=== PATIENT | male | born 1945 | race Caucasian/White ===

== ENCOUNTER → 2016-07-31 | Outpatient (CLI) | payer OTHER ==
[~2016-07-31] MED LIST: ASPIRIN FOR CHI81 MG PO; B121000 MCG/1 IM; HYZAAR 12.5 MG-1 TA1; LOPID600 MG PO; MECLIZINE HCL25 M1 PO
== END | disposition home or self-care (01) ==
LOC: RAD 15:22
DX: M17.12 Unilateral primary osteoarthritis, left knee (principal); M21.162 Varus deformity, not elsewhere classified, left knee; M76.9 Unspecified enthesopathy, lower limb, excluding foot; M25.762 Osteophyte, left knee

== ENCOUNTER → 2016-12-18 | Outpatient (CLI) | payer OTHER | END | disposition home or self-care (01) | LOC: ORTHO 03:20 | DX: M17.12 Unilateral primary osteoarthritis, left knee (principal); M25.762 Osteophyte, left knee ==

== ENCOUNTER → 2018-11-25 | Outpatient (CLI) | payer OTHER ==
[~2018-11-25] MED LIST changes: +VITAMIN B1250 MCG PO; +ZOCOR20 MG PO
[2018-11-25 17:24] LABS: BASO # 0.1 10*3/uL (0.0-0.1); BASO % 0.7 % (0.0-1.0); EOS # 0.1 10*3/uL (0.0-0.4); EOS % 0.9 % (1.0-4.0); HEMATOCRIT 48.8 % (42.0-52.0); HEMOGLOBIN 16.6 g/dl (14.0-18.0); LYMPH # 2.2 10*3/uL (1.3-4.4); LYMPH % 25.5 % (27.0-41.0); MEAN PLATELET VOLUME 12.1 fl (9.6-12.3); MONO # 0.5 10*3/uL (0.1-1.0); MONO % 6.2 % (3.0-9.0); NEUT # 5.8 10*3/uL (2.3-7.9); NEUT % 66.5 % (47.0-73.0); PLATELET COUNT AUTOMATED 187 10*3/uL (130-400); RED BLOOD COUNT 5.36 10*6/uL (4.50-5.90); RED CELL DISTRI WIDTH 12.6 % (0-14.5); WHITE BLOOD COUNT 8.8 10*3/uL (4.8-10.8)
[2018-11-25 17:57] LABS: BUN 17 mg/dl (7-24); CHLORIDE 95 mmol/L (98-107); POTASSIUM 4.2 mmol/L (3.5-5.1); SODIUM 131 mmol/L (136-145)
== END | disposition home or self-care (01) ==
LOC: LAB 16:50
PROVIDERS: Internal Medicine
DX: M79.622 Pain in left upper arm (principal); I10 Essential (primary) hypertension

== ENCOUNTER 2019-01-18 16:45 | Emergency (ER) | payer OTHER ==
[~2019-01-18] VITALS: Ht 175.2 cm; Wt 104.3 kg
[2019-01-18 16:49] VITALS: BP 174/92
[2019-01-18] MEDS ORDERED: ANTIBIOTIC28.4 GM T (21:17)
[2019-01-18] MEDS ORDERED: CEPHALEXIN500 M1 PO (21:17)
== END 2019-01-18 20:29 | disposition left against medical advice (07) ==
LOC: ED 16:45
DX: S02.2XXA Fracture of nasal bones, initial encounter for closed fracture (principal); S01.412A Laceration without foreign body of left cheek and temporomandibular area, initial encounter; I10 Essential (primary) hypertension; E78.5 Hyperlipidemia, unspecified; Z23 Encounter for immunization; Z88.5 Allergy status to narcotic agent; Z79.82 Long term (current) use of aspirin; Z79.899 Other long term (current) drug therapy; Z86.711 Personal history of pulmonary embolism; W18.30XA Fall on same level, unspecified, initial encounter; Y93.01 Activity, walking, marching and hiking; Y92.89 Other specified places as the place of occurrence of the external cause; Y99.8 Other external cause status

== ENCOUNTER → 2019-02-23 | Outpatient (CLI) | payer MEDICARE ==
[~2019-02-23] MED LIST changes: +ANTIBIOTIC28.4 GM T; +CEPHALEXIN500 M1 PO
== END | disposition home or self-care (01) ==
LOC: RESCLI 01:24
DX: Z76.89 Persons encountering health services in other specified circumstances (principal); E78.5 Hyperlipidemia, unspecified; I10 Essential (primary) hypertension; E55.9 Vitamin D deficiency, unspecified; E66.9 Obesity, unspecified; Z79.899 Other long term (current) drug therapy

== ENCOUNTER → 2019-03-30 | Outpatient (CLI) | payer MEDICARE | END | disposition home or self-care (01) | LOC: RESCLI 00:38 | DX: I10 Essential (primary) hypertension (principal); E78.5 Hyperlipidemia, unspecified; E55.9 Vitamin D deficiency, unspecified; E11.9 Type 2 diabetes mellitus without complications; Z79.82 Long term (current) use of aspirin; Z79.84 Long term (current) use of oral hypoglycemic drugs; Z79.899 Other long term (current) drug therapy ==

== ENCOUNTER 2020-07-04 12:41 | Emergency (ER) | payer OTHER ==
[~2020-07-04] VITALS: Wt 124.7 kg
[2020-07-04 13:18] LABS: BASO % 0.4 % (0.0-1.0); EOS % 0.2 % (1.0-4.0); HEMATOCRIT 47.7 % (42.0-52.0); LYMPH # 1.1 10*3/uL (1.3-4.4); LYMPH % 13.6 % (27.0-41.0); MEAN CORPUSCULAR HGB 29.6 pg (27.0-31.0); MEAN CORPUSCULAR HGB CONC 32.5 g/dl (33.0-37.0); MEAN PLATELET VOLUME 10.6 fl (9.6-12.3); MONO # 0.3 10*3/uL (0.1-1.0); MONO % 3.2 % (3.0-9.0); NEUT # 6.7 10*3/uL (2.3-7.9); NEUT % 82.1 % (47.0-73.0); PLATELET COUNT AUTOMATED 171 10*3/uL (130-400); RED BLOOD COUNT 5.24 10*6/uL (4.50-5.90); RED CELL DISTRI WIDTH 13.7 % (0-14.5); WHITE BLOOD COUNT 8.2 10*3/uL (4.8-10.8)
[2020-07-04 13:33] LABS: ALBUMIN 3.4 gm/dl (3.1-4.5); ALKALINE PHOSPHATASE 57 U/L (45-117); BUN 20 mg/dl (7-24); CHLORIDE 104 mmol/L (98-107); LIPASE 61 U/L (73-393); POTASSIUM 3.9 mmol/L (3.5-5.1); SGOT/AST 36 IU/L (3-35); SGPT/ALT 44 U/L (12-78); SODIUM 138 mmol/L (136-145); TOTAL PROTEIN 7.6 gm/dL (6.4-8.2)
[2020-07-04 13:34] LABS: TROPONIN I < 0.015 ng/ml (<0.045)
[2020-07-04 14:32] VITALS: BP 129/61
[2020-07-04] MEDS ORDERED: ZOFRAN4 MG PO (16:18)
[2020-07-04] MEDS ORDERED: MECLIZINE HCL25 M2 PO (16:18)
== END 2020-07-04 17:26 | disposition home or self-care (01) ==
LOC: ED 12:41
PROVIDERS: Emergency Medicine
DX: R42 Dizziness and giddiness (principal); Z88.5 Allergy status to narcotic agent; Z79.899 Other long term (current) drug therapy; Z79.82 Long term (current) use of aspirin

== ENCOUNTER 2023-06-05 10:51 | Inpatient (IN) | payer OTHER ==
[~2023-06-05] VITALS: Ht 172.7 cm; Wt 108.0 kg
[~2023-06-05 10:51] MED LIST changes: +MECLIZINE HCL25 M2 PO; +ZOFRAN4 MG PO
[2023-06-05 11:02] VITALS: BP 137/91
[2023-06-05] MEDS ORDERED: SODIUM CHLORIDE 0.9% 1,000 ML IV ONE (11:15)
[2023-06-05] MEDS ORDERED: IOHEXOL 300 MG/ML 100 ML VIAL IV ONE (11:30)
[2023-06-05 11:48] LABS: BASO % 0.2 % (0.0-1.0); EOS % 0.4 % (1.0-4.0); HEMATOCRIT 53.2 % (42.0-52.0); LYMPH % 11.1 % (27.0-41.0); MEAN CELL VOLUME 90.9 fl (80.0-94.0); MEAN CORPUSCULAR HGB 29.7 pg (27.0-31.0); MEAN CORPUSCULAR HGB CONC 32.7 g/dl (33.0-37.0); MEAN PLATELET VOLUME 10.8 fl (9.6-12.3); MONO # 0.6 10*3/uL (0.1-1.0); MONO % 6.8 % (3.0-9.0); NEUT # 7.6 10*3/uL (2.3-7.9); NEUT % 81.2 % (47.0-73.0); PLATELET COUNT AUTOMATED 169 10*3/uL (130-400); RED BLOOD COUNT 5.85 10*6/uL (4.50-5.90); WHITE BLOOD COUNT 9.3 10*3/uL (4.8-10.8)
[2023-06-05 12:10] LABS: ALKALINE PHOSPHATASE 51 U/L (46-116); BUN 19 mg/dl (9-23); CHLORIDE 101 mmol/L (98-107); LIPASE 30 U/L (12-53); POTASSIUM 3.7 mmol/L (3.4-5.1); SGPT/ALT 16 U/L (5-49); TOTAL PROTEIN 6.6 gm/dL (6.0-8.0)
[2023-06-05 13:30] VITALS: BP 127/74
[2023-06-05] MEDS ORDERED: Ondansetron Hydrochloride 4 MG/2 ML VIAL IV ONE (13:30)
[2023-06-05] MEDS ORDERED: MORPHINE Sulfate 2 MG/ML SYR IV ONE (13:30)
[2023-06-05 14:17] VITALS: BP 125/68
[2023-06-05 15:14] VITALS: BP 117/51
[2023-06-05] MEDS ORDERED: ATORVASTATIN CA40 M1 PO (15:42)
[2023-06-05] MEDS ORDERED: VALSARTAN-HCTZ1 EAC2 PO (15:43)
[2023-06-05] MEDS ORDERED: METFORMIN HYD1000 MG PO (15:43)
[2023-06-05] MEDS ORDERED: GABAPENTIN100 M2 PO (15:43)
[2023-06-05] MEDS ORDERED: GLIPIZIDE10 M2 PO (15:43)
[2023-06-05] MEDS ORDERED: JARDIANCE25 MG PO (15:43)
[2023-06-05] MEDS ORDERED: VITAMIN D350 MC3 PO (15:44)
[2023-06-05] MEDS ORDERED: PHENOL/NA PHENOLATE 20 ML THROAT SPRAY T PRN (15:45)
[2023-06-05] MEDS ORDERED: Benzocaine/Menthol 1 LOZ LOZENGE PO PRN (15:45)
[2023-06-05 16:00] VITALS: BP 123/60
[2023-06-05] MEDS ORDERED: Ketorolac Tromethamine 30 MG/ML VIAL IV PRN (17:25)
[2023-06-05] MEDS ORDERED: SODIUM CHLORIDE 0.9% 1,000 ML IV SCH (17:45)
[2023-06-05 20:00] VITALS: BP 116/50
[2023-06-06] VITALS: BP 133/62
[2023-06-06 08:00] VITALS: BP 123/56
[2023-06-06] MEDS ORDERED: ASPIRIN, CHEWABLE 81 MG TAB PO SCH (10:00)
[2023-06-06] MEDS ORDERED: Losartan Potassium 100 MG TABLET PO SCH (10:00)
[2023-06-06 12:00] VITALS: BP 121/58
[2023-06-06 16:00] VITALS: BP 129/62
[2023-06-06 20:00] VITALS: BP 128/60
[2023-06-07] VITALS: BP 129/71
[2023-06-07 06:46] LABS: BASO % 0.3 % (0.0-1.0); EOS # 0.2 10*3/uL (0.0-0.4); EOS % 2.1 % (1.0-4.0); HEMATOCRIT 50.9 % (42.0-52.0); LYMPH # 1.7 10*3/uL (1.3-4.4); LYMPH % 22.8 % (27.0-41.0); MEAN CELL VOLUME 91.9 fl (80.0-94.0); MEAN CORPUSCULAR HGB 29.8 pg (27.0-31.0); MEAN CORPUSCULAR HGB CONC 32.4 g/dl (33.0-37.0); MEAN PLATELET VOLUME 10.6 fl (9.6-12.3); MONO # 0.6 10*3/uL (0.1-1.0); MONO % 8.2 % (3.0-9.0); NEUT # 4.9 10*3/uL (2.3-7.9); NEUT % 66.3 % (47.0-73.0); PLATELET COUNT AUTOMATED 173 10*3/uL (130-400); RED BLOOD COUNT 5.54 10*6/uL (4.50-5.90); RED CELL DISTRI WIDTH 13.8 % (0-14.5); WHITE BLOOD COUNT 7.3 10*3/uL (4.8-10.8)
[2023-06-07 07:35] LABS: ALKALINE PHOSPHATASE 50 U/L (46-116); BUN 21 mg/dl (9-23); CHLORIDE 104 mmol/L (98-107); POTASSIUM 3.5 mmol/L (3.4-5.1); SGPT/ALT 20 U/L (5-49); TOTAL PROTEIN 6.3 gm/dL (6.0-8.0)
[2023-06-07 08:00] VITALS: BP 137/58
[2023-06-07 12:00] VITALS: BP 114/58
[2023-06-07 16:00] VITALS: BP 126/71
[2023-06-07 20:00] VITALS: BP 132/66
[2023-06-07] MEDS ORDERED: Aloe Vera/Carboxymethylcellu 44.3 ML CANS T PRN (22:40)
[2023-06-08] VITALS: BP 154/74
[2023-06-08 08:00] VITALS: BP 147/71
[2023-06-08] MEDS ORDERED: DIATRIZOATE MEG/DIATRIZO. SOD 120 ML BOT PO ONE (09:20)
[2023-06-08] MEDS ORDERED: DIATRIZOATE MEG/DIATRIZO. SOD 120 ML BOT ONE (09:28)
[2023-06-08 12:00] VITALS: BP 142/70
[2023-06-08 13:10] LABS: BASO % 0.3 % (0.0-1.0); EOS % 0.1 % (1.0-4.0); LYMPH # 1.2 10*3/uL (1.3-4.4); LYMPH % 10.7 % (27.0-41.0); MEAN CELL VOLUME 92.1 fl (80.0-94.0); MEAN CORPUSCULAR HGB 29.6 pg (27.0-31.0); MEAN CORPUSCULAR HGB CONC 32.1 g/dl (33.0-37.0); MEAN PLATELET VOLUME 10.6 fl (9.6-12.3); MONO # 0.5 10*3/uL (0.1-1.0); MONO % 4.7 % (3.0-9.0); NEUT # 9.4 10*3/uL (2.3-7.9); PLATELET COUNT AUTOMATED 209 10*3/uL (130-400); RED BLOOD COUNT 6.08 10*6/uL (4.50-5.90); RED CELL DISTRI WIDTH 13.8 % (0-14.5); WHITE BLOOD COUNT 11.2 10*3/uL (4.8-10.8)
[2023-06-08 14:59] LABS: ALKALINE PHOSPHATASE 66 U/L (46-116); BUN 30 mg/dl (9-23); CHLORIDE 105 mmol/L (98-107); POTASSIUM 3.8 mmol/L (3.4-5.1); SGPT/ALT 21 U/L (5-49); TOTAL PROTEIN 7.6 gm/dL (6.0-8.0)
[2023-06-08 16:00] VITALS: BP 144/91
[2023-06-08 20:00] VITALS: BP 141/72
[2023-06-09 00:03] VITALS: BP 145/67
[2023-06-09 08:00] VITALS: BP 148/71
[2023-06-09 12:00] VITALS: BP 142/64
[2023-06-09 13:16] LABS: BUN 38 mg/dl (9-23); CHLORIDE 100 mmol/L (98-107); POTASSIUM 3.4 mmol/L (3.4-5.1)
[2023-06-09 16:00] VITALS: BP 109/66
== END 2023-06-09 17:13 | disposition home or self-care (01) | DRG 389 ==
LOC: ED 10:51 → EDHOLD 13:46 → 4E 13:46
PROVIDERS: Internal Medicine; ADMIT Internal Medicine; ATTEND Internal Medicine
PROC: 0D9670Z Drainage of Stomach with Drainage Device, Via Natural or Artificial Opening (ICD-10-PCS; principal; 2023-06-05)
DX: K56.690 Other partial intestinal obstruction (principal); S32.030A Wedge compression fracture of third lumbar vertebra, initial encounter for closed fracture; K40.90 Unilateral inguinal hernia, without obstruction or gangrene, not specified as recurrent; I10 Essential (primary) hypertension; E11.9 Type 2 diabetes mellitus without complications; K59.00 Constipation, unspecified; Z82.49 Family history of ischemic heart disease and other diseases of the circulatory system; Z88.5 Allergy status to narcotic agent; Z79.82 Long term (current) use of aspirin; Z79.899 Other long term (current) drug therapy; Z79.84 Long term (current) use of oral hypoglycemic drugs

== ENCOUNTER → 2024-03-27 | Outpatient (CLI) | payer MEDICARE ==
[~2024-03-27] MED LIST changes: +ATORVASTATIN CA40 M1 PO; +GABAPENTIN100 M2 PO; +GLIPIZIDE10 M2 PO; +JARDIANCE25 MG PO; +METFORMIN HYD1000 MG PO; +VALSARTAN-HCTZ1 EAC2 PO; +VITAMIN D350 MC3 PO
== END | disposition home or self-care (01) ==
LOC: LAB 10:40
PROVIDERS: ATTEND Internal Medicine
DX: J02.9 Acute pharyngitis, unspecified (principal)